=== PATIENT | male | born 1985 | race Caucasian/White ===

== ENCOUNTER 2019-08-20 04:43 | Inpatient (IN) ==
[2019-08-20] MEDS ORDERED: Isovue-370 500 ML BOTTLE IVP ONE (05:03)
[2019-08-20] MEDS ORDERED: 0.9 % Sodium Chloride 1,000 ML IVC ONE (05:04)
[2019-08-20 05:12] LABS: Basophils # 0.1 K/mcL (0.0-0.2); Basophils % 0.3 %; Eosinophils # 0.1 K/mcL (0.0-0.6); Eosinophils % 0.5 %; Hematocrit 48.8 % (37.5-50.1); Immature Granulocytes % 0.4 % (0-4); Lymphocytes # 3.7 K/mcL (0.6-4.6); Lymphocytes % 21.8 %; Mean Corpuscular HGB Conc 34.8 g/dL (31.6-35.5); Mean Corpuscular Volume 88.9 fL (83.0-100.0); Mean Platelet Volume 10.6 fL (9.4-12.4); Monocytes # 1.2 K/mcL (0.0-1.3); Monocytes % 6.8 %; Neutrophils # 11.8 K/mcL (1.6-8.9); Platelet Count 248 K/mcL (140-400); Red Blood Count 5.49 M/mcL (4.19-5.50); Segmented Neutrophils % 70.2 %; White Blood Count 16.9 K/mcL (4.3-11.1)
[2019-08-20] MEDS: Nitroglycerin 0.4 MG TAB.SUBL SL SCH ×3 (05:21→05:32)
[2019-08-20 05:22] LABS: INR 0.9; Prothrombin Time 10.6 Seconds (9.4-12.1)
[2019-08-20 05:24] LABS: Activated Partial Thrombo Time 32.5 Seconds (26.0-36.0)
[2019-08-20 05:32] LABS: BUN/Creatinine Ratio 18 (6-26); Blood Urea Nitrogen 16 mg/dL (6-20); Calcium 10.5 mg/dL (8.6-10.3); Carbon Dioxide 26 mEq/L (23-29); Chloride 101 mEq/L (98-107); Glucose 125 mg/dL (70-105); Osmolality,Calculated 281 (280-300); Potassium 3.7 mEq/L (3.5-5.1); Sodium 134 mEq/L (136-145); eGFR For African Americans > 60 (> 60); eGFR For Non-African Americans > 60 (> 60)
[2019-08-20 05:35] LABS: Troponin I 0.07 ng/mL (< 0.04)
[2019-08-20] MEDS ORDERED: Aspirin 81 MG TAB.CHEW PO STA (05:36)
[2019-08-20] MEDS ORDERED: *HR* Heparin 5,000 UNIT/ML VIAL IVP ONE (05:47)
[2019-08-20] MEDS ORDERED: *HR* Heparin 5,000 UNIT/ML VIAL IVP PRN ×2 (05:47)
[2019-08-20] MEDS ORDERED: Morphine Sulfate 2 MG/ML SYRINGE IVP STA (05:49)
[2019-08-20] MEDS ORDERED: *HR* Heparin 5,000 UNIT/ML VIAL ONE (05:50)
[2019-08-20] MEDS ORDERED: *HR* Ticagrelor 90 MG TABLET ONE ×2 (05:50→06:45)
[2019-08-20] MEDS ORDERED: 0.9 % Sodium Chloride 1,000 ML ONE ×2 (05:58→06:18)
[2019-08-20] MEDS ORDERED: Heparin 25,000 UNIT/250 ML D5W 25,000 UNIT/250 ML IV.SOLN IVC SCH (06:00)
[2019-08-20 06:11] LABS: Magnesium 1.5 mg/dL (1.6-2.6)
[2019-08-20] MEDS ORDERED: ISOVUE-370 200 ML INFUS..BTL ONE ×3 (06:18→07:05)
[2019-08-20] MEDS ORDERED: Nitroglycerin 1,000 MCG/10 ML VIAL IV ONE (06:18)
[2019-08-20] MEDS ORDERED: *HR* Heparin 10,000 UNIT/10 ML VIAL ONE (06:18)
[2019-08-20] MEDS ORDERED: Heparin 1,000 UNITS/500 mL 500 ML ONE (06:18)
[2019-08-20] MEDS ORDERED: *HR* Midazolam HCl 2 MG/2 ML VIAL ONE (06:33)
[2019-08-20] MEDS ORDERED: *HR* FentaNYL (PF) 100 MCG/2 ML VIAL ONE (06:33)
[2019-08-20] MEDS ORDERED: Tirofiban 12.5 MG/250ML 12.5 MG/250 ML BAG ONE (07:00)
[2019-08-20] MEDS ORDERED: Furosemide 40 MG/4 ML VIAL ONE (07:27)
[2019-08-20] MEDS: lisinopriL 5 MG TABLET PO SCH (10:18)
[2019-08-20] MEDS: carvediloL 6.25 MG TABLET PO SCH ×2 (10:18→17:04)
[2019-08-20] MEDS ORDERED: *HR* LORazepam 2 MG/ML VIAL IVP PRN (11:43)
[2019-08-20] MEDS ORDERED: carvediloL 6.25 MG TABLET PO ONE (17:10)
[2019-08-20] MEDS: *HR* Ticagrelor 90 MG TABLET PO SCH (20:02)
[2019-08-21 04:52] LABS: Basophils % 0.2 %; Eosinophils # 0.1 K/mcL (0.0-0.6); Eosinophils % 0.5 %; Hematocrit 49.1 % (37.5-50.1); Immature Granulocytes % 0.4 % (0-4); Lymphocytes % 26.6 %; Mean Corpuscular HGB Conc 34.6 g/dL (31.6-35.5); Mean Corpuscular Hemoglobin 30.7 pg (28.0-33.3); Mean Corpuscular Volume 88.6 fL (83.0-100.0); Mean Platelet Volume 10.7 fL (9.4-12.4); Monocytes # 1.3 K/mcL (0.0-1.3); Monocytes % 8.8 %; Neutrophils # 9.5 K/mcL (1.6-8.9); Platelet Count 242 K/mcL (140-400); Red Blood Count 5.54 M/mcL (4.19-5.50); Red Cell Distribution Width 12.3 % (11.5-14.5); Segmented Neutrophils % 63.5 %
[2019-08-21 05:17] LABS: BUN/Creatinine Ratio 18 (6-26); Blood Urea Nitrogen 16 mg/dL (6-20); Calcium 9.7 mg/dL (8.6-10.3); Carbon Dioxide 24 mEq/L (23-29); Chloride 103 mEq/L (98-107); Chol/HDL Ratio 5.6 (0-4.9); Cholesterol 214 mg/dL (< 200); Glucose 118 mg/dL (70-105); HDL Cholesterol 38 mg/dL (40-59); LDL Cholesterol,Calculated 153 mg/dL (0-99); Osmolality,Calculated 284 (280-300); Potassium 3.8 mEq/L (3.5-5.1); Sodium 136 mEq/L (136-145); Triglycerides 116 mg/dL (< 150); eGFR For African Americans > 60 (> 60); eGFR For Non-African Americans > 60 (> 60)
[2019-08-21 07:58] LABS: Estimated Average Glucose 108 mg/dl
[2019-08-21] MEDS ORDERED: carvediloL 6.25 MG TABLET PO SCH ×2 (08:00→17:00)
[2019-08-21] MEDS ORDERED: Aspirin 81 MG TAB.CHEW PO SCH (09:00)
[2019-08-21] MEDS: Nicotine 21 MG PATCH.TD24 TD SCH ×3 (10:00→17:30)
[2019-08-21] MEDS: lisinopriL 5 MG TABLET PO SCH (10:04)
[2019-08-21] MEDS: *HR* Ticagrelor 90 MG TABLET PO SCH ×2 (10:04→20:43)
[2019-08-21] MEDS ORDERED: carvediloL 6.25 MG TABLET PO ONE (12:08)
[2019-08-21] MEDS ORDERED: *HR* LORazepam 2 MG/ML VIAL IVP PRN (14:33)
[2019-08-21] MEDS: carvediloL 6.25 MG TABLET PO SCH (17:30)
[2019-08-22 01:20] LABS: Basophils # 0.1 K/mcL (0.0-0.2); Basophils % 0.3 %; Eosinophils # 0.1 K/mcL (0.0-0.6); Eosinophils % 0.8 %; Hematocrit 49.1 % (37.5-50.1); Hemoglobin 16.8 g/dL (12.9-16.9); Immature Granulocytes % 0.3 % (0-4); Lymphocytes # 4.6 K/mcL (0.6-4.6); Lymphocytes % 30.8 %; Mean Corpuscular HGB Conc 34.2 g/dL (31.6-35.5); Mean Corpuscular Hemoglobin 30.7 pg (28.0-33.3); Mean Corpuscular Volume 89.6 fL (83.0-100.0); Mean Platelet Volume 11.3 fL (9.4-12.4); Monocytes # 1.3 K/mcL (0.0-1.3); Monocytes % 8.6 %; Neutrophils # 8.9 K/mcL (1.6-8.9); Platelet Count 237 K/mcL (140-400); Red Blood Count 5.48 M/mcL (4.19-5.50); Red Cell Distribution Width 12.1 % (11.5-14.5); Segmented Neutrophils % 59.2 %
[2019-08-22 01:42] LABS: BUN/Creatinine Ratio 20 (6-26); Blood Urea Nitrogen 17 mg/dL (6-20); Calcium 9.6 mg/dL (8.6-10.3); Carbon Dioxide 20 mEq/L (23-29); Chloride 102 mEq/L (98-107); Glucose 96 mg/dL (70-105); Osmolality,Calculated 277 (280-300); Potassium 3.7 mEq/L (3.5-5.1); Sodium 133 mEq/L (136-145); eGFR For African Americans > 60 (> 60); eGFR For Non-African Americans > 60 (> 60)
[2019-08-22 01:50] LABS: Troponin I 21.02 ng/mL (< 0.04)
[2019-08-22 07:35] VITALS: BP 120/85
[2019-08-22] MEDS ORDERED: lisinopriL 5 MG TABLET PO SCH (09:00)
[2019-08-22] MEDS ORDERED: Aspirin 81 MG TAB.CHEW PO SCH (09:00)
[2019-08-22] MEDS: carvediloL 6.25 MG TABLET PO SCH (09:48)
[2019-08-22] MEDS: *HR* Ticagrelor 90 MG TABLET PO SCH (09:48)
[2019-08-22] MEDS: Nicotine 21 MG PATCH.TD24 TD SCH (09:49)
== END 2019-08-22 13:25 | disposition home or self-care (01) | DRG 247 ==
LOC: EMEROOARM 04:43 → ICNU 04:43 → 2NENU 08-21 15:50
PROVIDERS: ADMIT Internal Medicine; ATTEND Internal Medicine Cardiovascular Disease